=== PATIENT | male | born 1990 | race Caucasian/White ===

== ENCOUNTER 2017-06-03 10:03 | Emergency (ER) | payer OTHER, BC ==
[~2017-06-03] VITALS: Ht 175.3 cm; Wt 91.2 kg
[~2017-06-03 10:03] MED LIST: DOXYCYCLINE HY100 MG PO
[2017-06-03] MEDS ORDERED: FLEXERIL10 MG PO (11:34)
[2017-06-03] MEDS ORDERED: MOTRIN600 MG PO (11:34)
[2017-06-03 11:44] VITALS: BP 131/67
== END 2017-06-03 11:46 | disposition home or self-care (01) ==
LOC: EME 10:03
DX: M62.838 Other muscle spasm (principal); M54.2 Cervicalgia; R51 Headache; M54.5 Low back pain; V49.40XA Driver injured in collision with unspecified motor vehicles in traffic accident, initial encounter; Y92.410 Unspecified street and highway as the place of occurrence of the external cause; Z86.718 Personal history of other venous thrombosis and embolism
CPT/HCPCS: 72070; 72100; 72125; 99281; 99283